=== PATIENT | male | born 1995 | race Hispanic/Latino ===

== ENCOUNTER 2023-12-22 13:14 | Emergency (ER) | payer MEDICAID, OTHER ==
[~2023-12-22] VITALS: Ht 167.6 cm; Wt 54.4 kg
[2023-12-22 15:24] VITALS: BP 113/53; PULSE 74; RESP 20; O2SAT 97
== END 2023-12-22 15:30 ==
LOC: EDH 13:14 → EEVIPCON 13:14 → EDH 15:30
DX: S01.81XA Laceration without foreign body of other part of head, initial encounter (principal); W22.8XXA Striking against or struck by other objects, initial encounter; Y93.89 Activity, other specified; Y92.89 Other specified places as the place of occurrence of the external cause; Y99.8 Other external cause status
CPT/HCPCS: 70450; 72125